=== PATIENT | male | born 1970 | race Caucasian/White ===

== ENCOUNTER 2017-03-20 10:19 | Emergency (ER) | payer OTHER ==
[~2017-03-20 10:19] MED LIST: GABAPENTIN300 MG PO; NAPROXEN500 MG PO; NEURONTIN800 MG PO; NORCO 5-325 TA1 EACH PO; TRAMADOL HCL50 MG PO
== END 2017-03-20 10:25 | disposition left against medical advice (07) ==
LOC: ED 10:19
DX: Z53.21 Procedure and treatment not carried out due to patient leaving prior to being seen by health care provider (principal)

== ENCOUNTER 2019-04-30 15:46 | Emergency (ER) | payer OTHER ==
[~2019-04-30] VITALS: Ht 193 cm; Wt 121.6 kg
[~2019-04-30 15:46] MED LIST changes: +EPCLUSA 400 MG1 EACH PO; +HYDROXYZINE HCL50 MG PO; +MINIPRESS1 MG PO
[2019-04-30] MEDS ORDERED: ZYPREXA10 MG PO (16:20)
[2019-04-30] MEDS ORDERED: LACTULOSE10 GM/15 M PO (16:40)
== END 2019-04-30 16:52 | disposition home or self-care (01) ==
LOC: ED 15:46
DX: E72.20 Disorder of urea cycle metabolism, unspecified (principal); E11.9 Type 2 diabetes mellitus without complications; F20.9 Schizophrenia, unspecified; F17.200 Nicotine dependence, unspecified, uncomplicated; Z88.0 Allergy status to penicillin; Z88.2 Allergy status to sulfonamides; Z88.1 Allergy status to other antibiotic agents; Z91.040 Latex allergy status; Z88.7 Allergy status to serum and vaccine; Z79.899 Other long term (current) drug therapy
CPT/HCPCS: 99282

== ENCOUNTER 2023-12-04 23:08 | Emergency (ER) | payer OTHER ==
[~2023-12-04] VITALS: Ht 193 cm; Wt 95.0 kg
[~2023-12-04 23:08] MED LIST changes: +LACTULOSE10 GM/15 M PO; +ZYPREXA10 MG PO
[2023-12-04] MEDS ORDERED: DOXYCYCLINE HYCLATE 100 MG HOME.PACK PO ONE (23:30)
[2023-12-04] MEDS ORDERED: INSULIN LISPRO 100 UNIT/ML ML SUB-Q ONE (23:45)
[2023-12-05 00:02] LABS: PH, VENOUS 7.421 (7.31-7.41)
[2023-12-05 00:03] LABS: HEMOGLOBIN 13.6 g/dL (12.0-18.0); RBC 4.22 M/ul (4.3-5.7); RDW 15.2 (10.5-15.0)
[2023-12-05 00:05] LABS: BASOPHILS 1.2 % (0-2); EOSINOPHILS 6.4 % (0-6); HEMATOCRIT 39.3 % (35.0-50.0); LYMPHOCYTES 25.4 % (24-44); MCH 32.1 (27-36); MCHC 34.5 g/dl (30-36); MCV 93.1 fl (81-99); MONOCYTES 9.3 % (0-12); NEUTROPHILS 57.7 % (39-80); PLATELET COUNT 76 K/uL (140-440)
[2023-12-05 00:20] LABS: ALBUMIN 2.5 g/dL (3.4-5.0); ALBUMIN/GLOBULIN RATIO 0.49 (1.1-2.4); BILIRUBIN, TOTAL 1.9 ng/dL (0.2-1.0); BUN/CREATININE RATIO 7.69 (6.0-28.6); CALCIUM 8.9 mg/dL (8.5-10.1); CREATININE, SERUM 1.17 mg/dL (0.70-1.30); PROTEIN, TOTAL 7.6 g/dL (6.4-8.2)
[2023-12-05] MEDS ORDERED: METFORMIN HCL1000 M2 PO (00:42)
[2023-12-05] MEDS ORDERED: CARVEDILOL6.25 MG PO (00:42)
[2023-12-05] MEDS ORDERED: GLYBURIDE5 MG PO (00:42)
[2023-12-05 01:11] VITALS: BP 161/78
== END 2023-12-05 01:13 | disposition home or self-care (01) ==
LOC: ED 23:08
PROVIDERS: Family Medicine
DX: L03.116 Cellulitis of left lower limb (principal); E11.9 Type 2 diabetes mellitus without complications; F17.200 Nicotine dependence, unspecified, uncomplicated; Z88.7 Allergy status to serum and vaccine; Z88.0 Allergy status to penicillin; Z88.2 Allergy status to sulfonamides; Z88.1 Allergy status to other antibiotic agents; Z91.040 Latex allergy status
CPT/HCPCS: 36415; 80053; 82010; 82803; 85025; 99283; A9270; J1815